=== PATIENT | male | born 1940 | race Caucasian/White ===

== ENCOUNTER 2024-12-20 09:51 | Outpatient (OUT) | payer MEDICARE, SELFPAY ==
--- NOTE | 2024-12-20 11:05 | XR_ITS ---
The [address] [address] Patient Name: ANNEMARIE ADLER MRN: [id number] date: 1940 Sex: M Assigned Patient Location: MRI Current Patient Location: MRI Accession/Order Number: [id number] Exam Date: 12/20/2024 13:48 Report Date: 12/20/2024 14:04 At the request of: NUHA OLIVARES APRN Procedure: XR lumbar spine 6V w bending CLINICAL HISTORY: Chronic Back Pain, greatest near the tailbone and left SI joint. No injury. THORACIC SPINE - 3 views: COMPARISON: None AP, lateral and swimmer's views were obtained. There is osteopenia. There is potential slight dextroscoliotic curvature. No acute compression fractures are identified. Multilevel endplate spurring is seen. Patient has a dorsal stimulator which extends up to the T7 level granulomatous changes are noted. XR/XR lumbar spine 6V w bending IMPRESSION: OSTEOPENIA, POTENTIAL SLIGHT SCOLIOSIS AND DEGENERATIVE CHANGES. NO ACUTE BONY FINDINGS. LUMBAR SPINE - 7 views Comparison 08/31/2021 and 05/28/2022 AP lateral neutral, flexion, extension, both oblique and coned-down lateral view of the sacrum were obtained. There is osteopenia. Slight dextroscoliotic curvature is noted. There is prior laminectomy from L3 through L5. There is also fusion with posterior rods and pedicle screws extending from L2 through S1. There is interbody fusion device at L3-4. The hardware appears intact and unchanged from the prior. No acute fractures are identified. There is continued slight retrolisthesis of L1 and L2 and L2 on L3. No instability is noted. Multilevel disc space narrowing is seen. Endplate spurring and facet hypertrophy are present. The SI joints are intact. There is a dorsal stimulator with battery pack on the right. This obscures a portion of the sacrum on the lateral view. No paraspinal soft tissue abnormalities are identified. There is atherosclerotic disease. There are multiple hemostasis clips in the epigastric region. IMPRESSION: OSTEOPENIA, SUBTLE SCOLIOSIS, POSTOPERATIVE AND DEGENERATIVE CHANGES. NO ACUTE FINDINGS. Impression dictated by: Narcisa Pineda M.D.12/20/2024 2:04 PM Dictation Location: [facility] Electronically authenticated by: [id number] Date: 12/20/2024 14:04
== END 2024-12-20 09:52 | disposition home or self-care (01) ==
LOC: MRI 09:57
PROVIDERS: PCP Internal Medicine
DX: M54.16 Radiculopathy, lumbar region (principal); M54.59 Other low back pain; R33.9 Retention of urine, unspecified; M54.9 Dorsalgia, unspecified; G89.29 Other chronic pain; M85.88 Other specified disorders of bone density and structure, other site; M51.369 Other intervertebral disc degeneration, lumbar region without mention of lumbar back pain or lower extremity pain
CPT/HCPCS: 72070; 72114